=== PATIENT | female | born 1980 | race Caucasian/White ===

== ENCOUNTER → 2022-11-29 | Outpatient (CLI) | payer OTHER ==
--- NOTE | 2022-11-29 19:13 | MM ---
Reason for Exam: Screening (asymptomatic). Last mammogram was performed 10 year(s) and 3 month(s) ago. Patient History: Menarche at age 13. First Full-Term at age 28. Maternal grandmother had breast cancer, age 60. Risk Values: Radhika 5 year model risk: 0.7%. NCI Lifetime model risk: 9.9%. Prior Study Comparison: 08/27/2012 Bilateral Diagnostic Mammogram, [facility]. Tissue Density: The breast tissue is heterogeneously dense. This may lower the sensitivity of mammography. Findings: Analyzed By CAD. Nodular areas of asymmetric density central left breast may represent superimposition shadow but further evaluation is recommended. No suspicious microcalcification or other discrete abnormality is seen on either side. Overall Assessment: Incomplete: need additional imaging evaluation, BI-RAD 0 Management: Special View Mammogram of the left breast. Including spot 3-D CT, 3-D CC rolled lateral, spot 3-D MLO, and 3-D lateral views. Targeted left breast ultrasound if any persistent abnormality. [facility] will attempt to contact patient to return for supplemental views and ultrasound if indicated. Electronically signed and approved by: Kj Miguel M.D. Radiologist
--- NOTE | 2022-12-15 16:33 | CE ---
EVENT MONITOR STUDY PERFORMED: [facility]. REFERRING PHYSICIAN: Iglesia Salgado. INDICATION OF THE STUDY: Palpitations. The patient was monitored for 24 hours. The baseline rhythm appeared to be sinus mechanism. The patient did have multiple episodes of what seems to be short episodes of atrial tachycardia. No evidence of any atrial fibrillation or atrial flutter noted. No evidence of any advanced AV block seen. No diary was attached to the study. The baseline rhythm appeared to be sinus. Multiple short episodes of atrial tachycardia noted. No significant sinus pause or sinus arrest. No diary was attached to the study. MMODL / IJN: [id number] / MTDD
== END | disposition home or self-care (01) ==
LOC: RADMAMWWP 11:27
PROVIDERS: ATTEND Family Medicine
DX: Z12.31 Encounter for screening mammogram for malignant neoplasm of breast (principal); I47.1 Supraventricular tachycardia; R00.2 Palpitations; Z80.3 Family history of malignant neoplasm of breast
CPT/HCPCS: 77067; 93270

== ENCOUNTER → 2023-01-31 | Outpatient (CLI) | payer OTHER ==
[2023-01-31 15:58] LABS: ALT 12 U/L (8-44); AST 16 U/L (13-35); African American GFR (CKD) 110.6 (60.0-200.0); Albumin 4.3 g/dL (3.8-4.9); Albumin/Globulin Ratio 1.82 (1.60-3.17); Alkaline Phosphatase 62 U/L (41-126); BUN/Creat Ratio 14.53 Ratio (12.00-20.00); Blood Urea Nitrogen 11.1 mg/dL (9.0-27.0); Calcium 9.4 mg/dL (8.7-10.3); Carbon Dioxide 26.8 mmol/L (20.0-27.5); Chloride 106 mmol/L (96-109); Chol/HDL Ratio 2.75 Ratio; Globulin 2.4 g/dL (1.6-3.3); Glucose 90 mg/dL (70-110); LDL Cholesterol,Calculated 108.8 mg/dL (0.0-131.0); Non-African American GFR(CKD) 95.5 (60.0-200.0); Potassium 4.4 mmol/L (3.5-5.5); Sodium 142 mmol/L (135-145); Total Protein 6.7 g/dL (6.2-8.2); VLDL Calculation 15.78 mg/dL (5.00-40.00)
[2023-01-31 16:05] LABS: HCT 35.3 % (37.2-46.3); HGB 10.9 g/dL (12.0-15.0); MCH 29.2 pg (27.0-32.0); MCHC 30.9 g/dL (32.0-37.0); MCV 94.6 fL (80.0-97.0); Mean Platelet Volume 10.6 fL (9.5-12.2); NRBC Per 100 WBC 0 /100 WBCS (0.0-0.0); Platelet Count 288 X 10*3/uL (140-440); RBC 3.73 X 10*6/uL (4.10-5.20); RDW 13.4 % (11.5-14.5); WBC 7.78 X 10*3/uL (4.50-10.00)
== END | disposition home or self-care (01) ==
LOC: LABWHC1 08:37
PROVIDERS: ATTEND Family Medicine
DX: Z00.00 Encounter for general adult medical examination without abnormal findings (principal)
CPT/HCPCS: 36415; 80053; 80061; 85027

== ENCOUNTER → 2023-02-19 | Outpatient (CLI) | payer OTHER ==
--- NOTE | 2023-02-19 11:29 | MM ---
Reason for Exam: Additional evaluation requested from prior study. Last screening mammogram was performed 2 month(s) ago. Patient History: Menarche at age 13. First Full-Term at age 28. Maternal grandmother had breast cancer, age 60. Last menstrual period: 02/18/2023 Risk Values: Radhika 5 year model risk: 0.7%. NCI Lifetime model risk: 9.9%. Prior Study Comparison: 08/27/2012 Bilateral Diagnostic Mammogram, [facility]. 11/29/2022 Bilateral MG screening mammo w CAD, [facility]. Tissue Density: Left: The breast tissue is heterogeneously dense. This may lower the sensitivity of mammography. Findings: Analyzed By CAD. Focal asymmetries and asymmetries persists in the left breast. Within the posterior nipple line. Middle depth. No new suspicious masses, calcifications. Overall Assessment: Incomplete: need additional imaging evaluation, BI-RAD 0 Management: Diagnostic Breast Ultrasound of the left breast. Results were given to the patient verbally at the time of exam. Patient should continue monthly self-breast exams. A clinical breast exam by your physician is recommended on an annual basis. This exam should not preclude additional follow-up of suspicious palpable abnormalities. Note on Radhika scores and lifetime risk: 1. A Radhika score greater than 3% is considered moderate risk. If this is the case, consider specialist referral to assess eligibility for a risk reducing agent. 2. If overall lifetime risk for the development of breast cancer is 20% or higher, the patient may qualify for future screening with alternating mammogram and breast MRI. Electronically signed and approved by: Geoffrey Solorio DO
--- NOTE | 2023-02-19 13:53 | USB ---
Reason for Exam: Additional evaluation requested from abnormal screening. Patient History: Menarche at age 13. First Full-Term at age 28. Maternal grandmother had breast cancer, age 60. Risk Values: Radhika 5 year model risk: 0.7%. NCI Lifetime model risk: 9.9%. Technique: Method: Whole Breast Handheld. Prior Study Comparison: 08/27/2012 Bilateral Diagnostic Mammogram, [facility]. 11/29/2022 Bilateral MG screening mammo w CAD, [facility]. Findings: The whole breast of the left breast, the axilla of the left breast and the retroareolar of the left breast were scanned. Imaged: Ultrasound imaging of: All 4 quadrants, the retroareolar region and axilla. Nothing to correlate with findings on mammogram. No evidence for organizing fluid collection or mass. Overall Assessment: Probably benign, BI-RAD 3 Management: Diagnostic Mammogram of the left breast in 6 months. A clinical breast exam by your physician is recommended on an annual basis and results should be correlated with mammographic findings. This exam should not preclude additional follow-up of suspicious palpable abnormalities. Results were given to the patient verbally at the time of exam. Electronically signed and approved by: Geoffrey Solorio DO
== END | disposition home or self-care (01) ==
LOC: RADMAMWWP 10:19
PROVIDERS: ATTEND Family Medicine
DX: R92.8 Other abnormal and inconclusive findings on diagnostic imaging of breast (principal); Z80.3 Family history of malignant neoplasm of breast
CPT/HCPCS: 77061; 77065

== ENCOUNTER → 2023-02-22 | Outpatient (CLI) | payer OTHER ==
[2023-02-22 16:27] LABS: HCT 35.6 % (37.2-46.3); HGB 11.2 g/dL (12.0-15.0); MCH 29.3 pg (27.0-32.0); MCHC 31.5 g/dL (32.0-37.0); MCV 93.2 fL (80.0-97.0); Mean Platelet Volume 10.7 fL (9.5-12.2); NRBC Per 100 WBC 0 /100 WBCS (0.0-0.0); Platelet Count 278 X 10*3/uL (140-440); RBC 3.82 X 10*6/uL (4.10-5.20); RDW 13.5 % (11.5-14.5); WBC 7.54 X 10*3/uL (4.50-10.00)
== END | disposition home or self-care (01) ==
LOC: LABWHC1 08:37
PROVIDERS: ATTEND Family Medicine
DX: D64.9 Anemia, unspecified (principal)
CPT/HCPCS: 36415; 85027

== ENCOUNTER → 2023-12-11 | Outpatient (CLI) | payer OTHER ==
--- NOTE | 2023-12-11 08:33 | MM ---
Reason for Exam: Follow-up at short interval from prior study. Last screening mammogram was performed 12 month(s) ago. Patient History: Menarche at age 13. First Full-Term at age 28. Maternal grandmother had breast cancer, age 60. Last menstrual period: 12/04/2023 Risk Values: Radhika 5 year model risk: 0.8%. NCI Lifetime model risk: 9.8%. Tissue Density: The breasts are heterogeneously dense, which may obscure small masses. Findings: Analyzed By CAD. Area of concern/asymmetry compresses out on spot compression imaging. No suspicious masses, calcifications or distortions. Overall Assessment: Benign, BI-RAD 2 Management: Screening Mammogram of both breasts in 1 year. Results were given to the patient verbally at the time of exam. Patient should continue monthly self-breast exams. A clinical breast exam by your physician is recommended on an annual basis. This exam should not preclude additional follow-up of suspicious palpable abnormalities. Note on Radhika scores and lifetime risk: 1. A Radhika score greater than 3% is considered moderate risk. If this is the case, consider specialist referral to assess eligibility for a risk reducing agent. 2. If overall lifetime risk for the development of breast cancer is 20% or higher, the patient may qualify for future screening with alternating mammogram and breast MRI. Electronically signed and approved by: Geoffrey Solorio DO
== END | disposition home or self-care (01) ==
LOC: RADMAMWWP 07:55
PROVIDERS: ATTEND Family Medicine
DX: R92.333 Mammographic heterogeneous density, bilateral breasts (principal); Z80.3 Family history of malignant neoplasm of breast
CPT/HCPCS: 77062; 77066

== ENCOUNTER → 2024-01-28 | Outpatient (CLI) | payer OTHER ==
[2024-01-28 15:26] LABS: ALT 10 U/L (8-44); AST 17 U/L (13-35); Albumin 4.5 g/dL (3.8-4.9); Albumin/Globulin Ratio 1.88 Ratio (1.60-3.17); Alkaline Phosphatase 66 U/L (41-126); BUN/Creat Ratio 13.43 Ratio (12.00-20.00); Blood Urea Nitrogen 9.4 mg/dL (9.0-27.0); Calcium 9.7 mg/dL (8.7-10.3); Chloride 105 mmol/L (96-109); Chol/HDL Ratio 3.08 Ratio; Globulin 2.4 g/dL (1.6-3.3); Glucose 98 mg/dL (70-110); LDL Cholesterol,Calculated 109.8 mg/dL (0.0-131.0); Potassium 4.5 mmol/L (3.5-5.5); Sodium 142 mmol/L (135-145); Total Bilirubin 0.8 mg/dL (0.3-1.2); Total Protein 6.9 g/dL (6.2-8.2)
[2024-01-28 15:51] LABS: HCT 35.8 % (37.2-46.3); HGB 11.1 g/dL (12.0-15.0); MCH 28.7 pg (27.0-32.0); MCV 92.5 FL (80.0-97.0); Mean Platelet Volume 10.5 FL (9.5-12.2); NRBC Per 100 WBC 0 X 10*3/uL (0.00-0.01); Platelet Count 325 X 10*3/uL (140-440); RBC 3.87 X 10*6/uL (4.10-5.20); RDW 14.6 % (11.5-14.5); WBC 7.05 X 10*3/uL (4.50-10.00)
== END | disposition home or self-care (01) ==
LOC: LABWHC1 08:42
PROVIDERS: ATTEND Family Medicine
DX: Z00.00 Encounter for general adult medical examination without abnormal findings (principal)
CPT/HCPCS: 36415; 80053; 80061; 85027